=== PATIENT | female | born 1965 | race Caucasian/White ===

== ENCOUNTER 2017-04-10 05:49 | Day surgery (SDC) | payer BC ==
[~2017-04-10] VITALS: Ht 160 cm; Wt 85.9 kg
--- NOTE | ~2017-04-10 | OR ---
PATIENT'S NAME: TARYN TORRES [facility] AGE: 51 Y [address] ROOM: [address] [address] LOCATION: [facility] [place] DATE: 04/10/2017 OR/Procedure Report DISCHARGE DATE: FAMILY PHYSICIAN: Caron Peter MD ATTENDING PHYSICIAN: Sil Bailey SURGEON: Sil Bailey MD HOME COMFORT ADVISOR: None. DATE OF PROCEDURE: 04/10/2017 PREOPERATIVE DIAGNOSIS: Right ovarian cyst. POSTOPERATIVE DIAGNOSIS: Right ovarian cyst. PROCEDURE: Exploratory laparotomy, pelvic cell washings, and right salpingo- oophorectomy. ANESTHESIA: General endotracheal anesthesia. ESTIMATED BLOOD LOSS: 25 mL. CLINICAL INDICATIONS: Taryn Torres is a 51-year-old female with a 9 cm complex right-sided ovarian cyst consistent with a dermoid. She understood the indications, procedures, risks, alternatives of the removal. FINDINGS: A 10 cm right-sided ovarian cyst. Left ovary normal. Uterus normal. Pelvis normal. TECHNICAL PROCEDURE: The patient was taken to the operating room, given general endotracheal tube anesthesia with good results, placed in a supine position, prepped and draped in the usual fashion. Pfannenstiel skin incision was made with a scalpel. Subcutaneous tissue was dissected sharply. Fascial incision was performed sharply. Linea alba dissected free of rectus muscles using a combination of sharp and blunt dissection. Rectus muscles split sharply in the midline. Peritoneum incised sharply in the midline. At this point in time, cell washings were obtained. The right adnexa was brought through the incision. Two curved clamps were placed about the infundibulopelvic pedicle. The pedicle was released with Phillips scissors and the specimen was removed from the operative field. Two anchored stitches of 0 Vicryl suture were used to secure the pedicle. Good hemostasis was obtained. The abdomen was inspected. The abdominal peritoneum was closed with a running continually locking stitch of 2-0 Vicryl suture. The fascial incision was closed with 2 running continuous stitches of 0 Vicryl suture tied in the midline. Subcutaneous tissue was reapproximated using running continuous stitch of 2-0 Vicryl suture. Skin was closed with a running continuous subcuticular stitch of 4-0 Vicryl suture. Sponge, needle, and instrument PATIENT'S NAME: TARYN TORRES [facility] AGE: 51 Y [address] ROOM: [address] [address] LOCATION: [facility] [place] ADMIT DATE: 04/10/2017 OR/Procedure Report DISCHARGE DATE: FAMILY PHYSICIAN: Caron Peter MD ATTENDING PHYSICIAN: Sil Bailey counts were correct. The patient tolerated the procedure well, was taken to the recovery in good condition. SIL BAILEY MD DHW/modl /[id number] d: 04/10/17912 t: 04/17/17928, OPERATIVE SUMMARY
[~2017-04-10 05:49] MED LIST: ARMOUR THYROID30 MG PO; ARMOUR THYROID90 MG PO; PRILOSEC20 MG PO
[2017-04-10 06:50] LABS: BASOPHIL # 0.1 K/uL (0.0-0.2); EOSINOPHIL # 0.2 K/uL (0.0-0.5); EOSINOPHIL % 2.7 %; HEMATOCRIT 29.8 % (33.0-46.0); HEMOGLOBIN 9.2 g/dL (10.0-15.0); IMMATURE GRANULOCYTE % 0.1 %; LYMPHOCYTE # 1.8 K/uL (0.8-4.0); LYMPHOCYTE % 26.4 %; MCH 25.6 pg (27.0-34.0); MCHC 30.9 gm/dL (32.0-36.5); MONOCYTE # 0.5 K/uL (0.0-1.0); MONOCYTE % 6.6 %; MPV 10.6 fl (9.4-12.4); NEUTROPHIL # (ANC) 4.4 K/uL (1.8-7.8); NEUTROPHIL % 63.2 %; NRBC % 0 /100WBC (0-0.00); PLATELET COUNT 352 K/uL (150-450); RBC 3.59 M/uL (3.50-5.50); RDW-CV 15.1 % (11.9-14.6)
--- NOTE | 2017-04-10 17:36 | NUR ---
VSS, has been up in room, BAG FILLER dc'd at 1700. Toradol at 1700, 1 more dose to go at 2300. 1 Percocet given PRN at ___. Microfoam dressing to low abdomen, C/D/I. IV to L) hand.
[2017-04-11 04:26] LABS: BASOPHIL % 0.2 %; EOSINOPHIL % 0.4 %; HEMATOCRIT 26.2 % (33.0-46.0); IMMATURE GRANULOCYTE % 0.4 %; LYMPHOCYTE # 1.6 K/uL (0.8-4.0); LYMPHOCYTE % 17.8 %; MCH 25.9 pg (27.0-34.0); MCHC 30.5 gm/dL (32.0-36.5); MCV 84.8 fl (83.0-98.0); MONOCYTE # 0.5 K/uL (0.0-1.0); MONOCYTE % 5.4 %; MPV 10.2 fl (9.4-12.4); NEUTROPHIL % 75.8 %; NRBC % 0 /100WBC (0-0.00); PLATELET COUNT 292 K/uL (150-450); RBC 3.09 M/uL (3.50-5.50); RDW-CV 15.2 % (11.9-14.6); WBC 9.2 K/uL (4.0-11.0)
[2017-04-11] MEDS ORDERED: MOTRIN800 MG PO (08:19)
[2017-04-11] MEDS ORDERED: PERCOCET 5-3251 EACH PO (08:20)
== END 2017-04-11 13:10 | disposition disaster alternative care site (69) ==
LOC: GMSU 05:49 → GSDC 05:49 → GPOC 07:00 → GOBS 09:55 → GSDC 09:56 → GOBS 09:56 → GPOC 11:00 → GSDC 04-11 13:10 → GOBS 04-11 13:10
PROVIDERS: Obstetrics & Gynecology
PROC: 0WJJ0ZZ Inspection of Pelvic Cavity, Open Approach (ICD-10-PCS; principal; 2017-04-10)
PROC: 0UT50ZZ Resection of Right Fallopian Tube, Open Approach (ICD-10-PCS; 2017-04-10)
PROC: 0UT00ZZ Resection of Right Ovary, Open Approach (ICD-10-PCS; 2017-04-10)
DX: D27.0 Benign neoplasm of right ovary (principal); K21.9 Gastro-esophageal reflux disease without esophagitis; E03.9 Hypothyroidism, unspecified; Z87.891 Personal history of nicotine dependence; Z98.51 Tubal ligation status; Z98.890 Other specified postprocedural states; Z79.899 Other long term (current) drug therapy
CPT/HCPCS: J0694; J1100; J1885; J2001; J2250; J2270; J2405; J7040; J7120